=== PATIENT | male | born 1935 | race Caucasian/White ===

== ENCOUNTER 2019-12-02 09:02 | Outpatient (CLI) | payer MEDICARE, SELFPAY ==
--- NOTE | ~2019-12-02 | CT_ITS ---
EXAMINATION: CT abdomen pelvis w con DATE: 12/02/2019 09:46 INDICATION: Malignant neoplasm with hormone sensitive status TECHNIQUE: Computed tomography (CT) of the abdomen and pelvis was performed with 100 mL Omnipaque-350 intravenous contrast. Automated exposure control and iterative reconstruction technique were employe d. The dose-length product was 257.99 mGy-cm. COMPARISON: None FINDINGS: Couple calcified nodules in the left lower lobe and a few tiny splenic calcifications consistent with old granulomatous disease. Heart size is normal. No pericardial or pleural effusion. 7 mm low-attenu ation lesion with slightly smaller peripheral collection of avid enhancement physician assistant surgery with a small h emangioma. Gallbladder, pancreas, bilateral adrenal glands and kidneys are normal. There is moderate colonic diverticulosis with a sigmoid predominance. There is no adjacent inflammatory change to sugg est diverticulitis. Small bowel and appendix are normal. Bladder is normal. Prostatomegaly measuring 4.5 x 3.4 cm. No free intraperitoneal gas or fluid. No pathologically enlarged abdominal or pelvic ly mphadenopathy. There is calcified atherosclerosis of the aorta and many of the other arteries. There are a couple short dissections along the left and right sides of the infrarenal aorta which do not ex tend into the common iliac arteries. Moderate to severe stenosis at the left common iliac and right e xternal iliac arteries and proximal right femoral artery. Mild lumbar dextrocurvature with mild spond ylosis. No suspicious lytic or blastic bone lesions. IMPRESSION: 1. Prostatomegaly. 2. No evident metastatic disease. 3. Extensive atherosclerotic disease with couple short dissection is along the infrarenal aorta and s cattered moderate to severe stenoses in the left common, right external and right femoral arteries. Reviewed, dictated and finalized at location A. IMPRESSION: 1. Prostatomegaly. 2. No evident metastatic disease. 3. Extensive atherosclerotic disease with couple short dissection is along the infrarenal aorta and scattered moderate to severe stenoses in the left common, right external and right femoral arteries.
--- NOTE | ~2019-12-02 | NM_ITS ---
EXAMINATION: NM bone scan whole body DATE: 12/02/2019 12:58 INDICATION: Prostate cancer TECHNIQUE: 25.2 mCi Tc-99m HDP was administered intravenously. Delayed whole-body scintigrams were o btained. COMPARISON: CT abdomen and pelvis dated 12/02/2019 FINDINGS: There is increased uptake at the posterior left side of the lower cervical spine likely related to fa cet osteoarthritis. Otherwise physiologic distribution of activity with no other suspicious foci of b one uptake to suggest metastatic disease. IMPRESSION: 1. Region of increased bone uptake at the left posterior aspect of the lower cervical spine likely re lated to facet osteoarthritis. No other lesions to suggest osseous metastatic disease. Cervical spine radiographs could be obtained for confirmation. Reviewed, dictated and finalized at location A. IMPRESSION: 1. Region of increased bone uptake at the left posterior aspect of the lower ce rvical spine likely related to facet osteoarthritis. No other lesions to sugges t osseous metastatic disease. Cervical spine radiographs could be obtained for confirmation.
[2019-12-02 09:41] LABS: Estimated Glomerular Filt Rate > 60
== END 2019-12-02 09:03 | disposition home or self-care (01) ==
PROVIDERS: PCP Internal Medicine; Visit Provider Urology
DX: N40.0 Benign prostatic hyperplasia without lower urinary tract symptoms (principal); I70.0 Atherosclerosis of aorta; Z19.1 Hormone sensitive malignancy status
CPT/HCPCS: 74177; 78306; A9561; Q9967